=== PATIENT | male | born 1985 | race Caucasian/White ===

== ENCOUNTER → 2017-09-25 | Outpatient (CLI) | payer OTHER | LOC: M WUC 12:22 | DX: S39.012A Strain of muscle, fascia and tendon of lower back, initial encounter (principal); Y92.89 Other specified places as the place of occurrence of the external cause; Y93.89 Activity, other specified; Y99.8 Other external cause status | CPT/HCPCS: 72110 ==

== ENCOUNTER 2019-10-22 18:04 | Emergency (ER) | payer BC, OTHER, SELFPAY ==
[~2019-10-22] VITALS: Ht 182.9 cm; Wt 67.0 kg
[2019-10-22 18:04] VITALS: BP 139/85
[2019-10-22] MEDS: LIDOCAINE 5% (LIDODERM) PATCH TD ONE (20:00)
[2019-10-22] MEDS: methylPREDNISolone INJ 125 MG/2 ML VIAL (J2930) IM ONE (20:00)
[2019-10-22] MEDS: KETOROLAC 60 MG/2 ML VIAL (J1885) IM ONE (20:00)
[2019-10-22] MEDS ORDERED: LIDO5DIS41 TD (20:46)
[2019-10-22] MEDS ORDERED: CYCL10TA PO (20:46)
[2019-10-22] MEDS ORDERED: NAPR-837 PO (20:46)
[2019-10-22] MEDS: **NOTE PATIENT COMMENT** MISC XX SCH (20:50)
== END 2019-10-22 21:22 | disposition home or self-care (01) ==
LOC: M ED 18:04
DX: M54.5 Low back pain (principal); F17.210 Nicotine dependence, cigarettes, uncomplicated; Z88.0 Allergy status to penicillin
CPT/HCPCS: 96372; 99282; J1885; J2930

== ENCOUNTER 2022-03-01 10:02 | Emergency (ER) | payer SELFPAY ==
[~2022-03-01] VITALS: Ht 182.9 cm; Wt 66.3 kg
[~2022-03-01 10:02] MED LIST: CYCL-707 PO; LIDO5DIS41 TD; NAPR-837 PO
[2022-03-01 12:00] VITALS: BP 149/88
== END 2022-03-01 12:03 | disposition home or self-care (01) ==
LOC: M ED 10:02
DX: S62.631A Displaced fracture of distal phalanx of left index finger, initial encounter for closed fracture (principal); W22.8XXA Striking against or struck by other objects, initial encounter; Y92.018 Other place in single-family (private) house as the place of occurrence of the external cause; Z88.0 Allergy status to penicillin; F17.210 Nicotine dependence, cigarettes, uncomplicated

== ENCOUNTER → 2022-03-29 | Outpatient (CLI) | payer SELFPAY | LOC: M SOG 08:23 | PROVIDERS: ATTEND Physician Assistant | DX: S62.337A Displaced fracture of neck of fifth metacarpal bone, left hand, initial encounter for closed fracture (principal); S62.667A Nondisplaced fracture of distal phalanx of left little finger, initial encounter for closed fracture; X58.XXXA Exposure to other specified factors, initial encounter ==